=== PATIENT | male | born 1980 | race Hispanic/Latino ===

== ENCOUNTER 2017-04-10 11:00 | Emergency (ER) | payer SELFPAY ==
[2017-04-10] MEDS ORDERED: cloNIDine 0.1 MG TAB ONE (11:24)
[2017-04-10] MEDS ORDERED: Lorazepam 2 MG/ML VIAL ONE (11:24)
[2017-04-10 11:30] LABS: #Basophils 0.1 thou/uL (0.0-0.2); #Monocytes 0.9 thou/uL (0.11-0.59); #Neutrophils 5.3 thou/uL (1.40-6.50); %Eosinophils 0.3 % (0.0-10.0); %Lymphocytes 14.1 % (21.0-51.0); %Monocytes 12.7 % (0.0-10.0); %Neutrophils 71.9 % (42.0-75.0); Hemoglobin 13.8 g/dL (14.0-18.0); Mean Corpuscular HGB CONC 34.5 g/dL (32.0-36.0); Mean Corpuscular Hemoglobin 32.7 pg (27.0-31.0); Mean Corpuscular Volume 94.8 fl (80.0-94.0); Mean Platelet Volume 6.7 fL (7.4-10.4); Platelet Count 318 thou/uL (130-400); RBC Distribution Width 13.3 % (11.5-14.5); Red Blood Cell (RBC) Count 4.21 mill/uL (4.70-6.10); White Blood Cell (WBC) Count 7.4 thou/uL (4.8-10.8)
[2017-04-10] MEDS ORDERED: Ondansetron ODT 4 MG TAB ONE (11:37)
[2017-04-10 11:44] LABS: Anion Gap 18 mmol/L (10-20); BUN (Urea Nitrogen) 4 mg/dL (8.9-20.6); Calc. Creatinine Clearance 0 mL/min (70-130); Calcium 9.3 mg/dL (7.8-10.44); Carbon Dioxide 26 mmol/L (22-29); Chloride 97 mmol/L (98-107); Estimated GFR-MDRD Greater than 90; Glucose 88 mg/dL (70-105); Potassium 3.6 mmol/L (3.5-5.1); Sodium 137 mmol/L (136-145)
[2017-04-10 11:47] LABS: Acetaminophen Less than 6.0 mcg/mL (10.0-30.0); Alcohol 77 mg/dL (Less than 10); Salicylate Less than 8.0 mg/dL (15.0-30.0)
[2017-04-10] MEDS ORDERED: Thiamine HCl 200 MG/2 ML VIAL ONE (12:08)
== END 2017-04-10 12:30 | disposition home or self-care (01) ==
LOC: MADERS 11:00
DX: F10.239 Alcohol dependence with withdrawal, unspecified (principal); F17.210 Nicotine dependence, cigarettes, uncomplicated; F20.9 Schizophrenia, unspecified; I10 Essential (primary) hypertension
CPT/HCPCS: 80048; 80307; 85025; 96372; J2060; J3411; Q0162

== ENCOUNTER 2018-04-29 12:22 | Emergency (ER) | payer SELFPAY | END 2018-04-29 17:00 | disposition home or self-care (01) | LOC: MADERS 12:22 | DX: K52.9 Noninfective gastroenteritis and colitis, unspecified (principal); I10 Essential (primary) hypertension; F20.9 Schizophrenia, unspecified; F17.210 Nicotine dependence, cigarettes, uncomplicated | CPT/HCPCS: 87804; 99284 ==

== ENCOUNTER 2018-05-20 18:12 | Emergency (ER) | payer SELFPAY ==
[2018-05-20] MEDS ORDERED: Penicillin V Potassium 250 MG TAB ONE ×2 (19:04)
== END 2018-05-20 19:13 | disposition home or self-care (01) ==
LOC: MADERS 18:12
DX: K14.0 Glossitis (principal); I10 Essential (primary) hypertension; F20.9 Schizophrenia, unspecified; F17.210 Nicotine dependence, cigarettes, uncomplicated
CPT/HCPCS: 99282

== ENCOUNTER 2018-11-30 08:32 | Emergency (ER) | payer SELFPAY ==
[~2018-11-30 08:32] MED LIST: Sodium Chloride 0.9% 1,000 ML BAG ONE
[2018-11-30] MEDS ORDERED: Ondansetron PF 4 MG/2 ML Vial ONE (09:08)
[2018-11-30] MEDS ORDERED: Sodium Chloride 0.9% 1,000 ML ONE (09:08)
[2018-11-30 09:13] LABS: Hemoglobin 15.3 g/dL (14.0-18.0); Mean Corpuscular HGB CONC 33.5 g/dL (32.0-36.0); Mean Corpuscular Hemoglobin 31.6 pg (27.0-31.0); Mean Corpuscular Volume 94.5 fL (78.0-98.0); Mean Platelet Volume 7.7 fL (7.4-10.4); Platelet Count 265 thou/uL (130-400); RBC Distribution Width 13.1 % (11.5-14.5); Red Blood Cell (RBC) Count 4.83 mill/uL (4.70-6.10); White Blood Cell (WBC) Count 5.4 thou/uL (4.8-10.8)
--- NOTE | 2018-11-30 09:26 | RAD ---
XR Abdomen 2 View/1 View Cxr HISTORY: Abdominal pain nausea and vomiting. COMPARISON: None. FINDINGS: The bowel gas pattern is nonobstructive. No free air. No renal calculi are demonstrated. Th ere are arthritic changes of the spine. PA chest: Heart size and mediastinum are within normal limits. The lungs are clear of infiltrates. IMPRESSION: No acute findings.
[2018-11-30 09:31] LABS: Band 1 % (5-11); Lymphocytes 38 % (21-51); MDiff Complete? YES; Monocytes 16 % (0-10); Neutrophil 44 % (42-75)
[2018-11-30 09:32] LABS: Anisocytosis SLIGHT = 6-15 cells (100X) (0-5/hpf); Eosinophils 1 % (0-10); Platelet Morphology Comment Appears Adequate
[2018-11-30 09:33] LABS: ALT (SGPT) 106 U/L (8-55); AST (SGOT) 118 U/L (5-34); Albumin 4.9 g/dL (3.5-5.0); Alcohol 91 mg/dL (Less than 10); Alkaline Phosphatase 97 U/L (40-110); Anion Gap 22 mmol/L (10-20); BUN (Urea Nitrogen) 6 mg/dL (8.9-20.6); Bilirubin, Total 0.8 mg/dL (0.2-1.2); CK (CPK) 303 U/L (30-200); Calc. Creatinine Clearance 0 mL/min (70-130); Calcium 10.1 mg/dL (7.8-10.44); Carbon Dioxide 23 mmol/L (22-29); Chloride 99 mmol/L (98-107); Estimated GFR-MDRD Greater than 90; Globulin 3.5 g/dL (2.4-3.5); Glucose 119 mg/dL (70-105); Lipase 31 U/L (8-78); Potassium 3.4 mmol/L (3.5-5.1); Protein, Total 8.4 g/dL (6.0-8.3); Sodium 141 mmol/L (136-145)
[2018-11-30] MEDS ORDERED: Pantoprazole 40 MG VIAL ONE (09:44)
[2018-11-30 10:22] LABS: Bilirubin Negative (Negative); Blood, Urine Negative (Negative); Clarity Clear (Clear); Glucose, Urine (Dipstick) 100 mg/dL (Negative); Leukocyte Negative (Negative); Nitrite Negative (Negative); Protein, Urine (Dipstick) 100 mg/dL (Neg-Trace)
[2018-11-30 10:31] LABS: Bacteria/HPF Rare-Few HPF (None Seen); RBC/HPF 0-3 HPF (0-3); Squamous Epithelial 0-3 HPF (0-3); WBC/HPF 0-3 HPF (0-3)
[2018-11-30 10:32] LABS: Amphetamine Not Detected (NotDetected); Barbiturates Screen Not Detected (NotDetected); Benzodiazepine Screen Not Detected (NotDetected); Cocaine Metabolite Screen Not Detected (NotDetected); Medtox Control Line Valid? VALID (VALID); Methadone Not Detected (NotDetected); Methamphetamine Not Detected (NotDetected); Opiate Screen Not Detected (NotDetected); Oxycodone Screen Not Detected (NotDetected); Phencyclidine (PCP) Not Detected (NotDetected); THC/Cannabinoid Screen Not Detected (NotDetected); Tricyclic Screen Not Detected (NotDetected)
== END 2018-11-30 11:03 | disposition home or self-care (01) ==
LOC: MADERS 08:32
DX: K70.30 Alcoholic cirrhosis of liver without ascites (principal); E86.0 Dehydration; F10.129 Alcohol abuse with intoxication, unspecified; I10 Essential (primary) hypertension; F20.9 Schizophrenia, unspecified; F17.210 Nicotine dependence, cigarettes, uncomplicated
CPT/HCPCS: 74022; 80053; 80306; 80307; 81003; 81015; 82150; 82550; 83690; 85025; 96361; 96374; 96375; C9113; J2405; J7050

== ENCOUNTER 2020-07-11 04:58 | Emergency (ER) | payer OTHER, SELFPAY ==
[2020-07-11 05:53] LABS: Hemoglobin 12.1 g/dL (14.0-18.0); Mean Corpuscular HGB CONC 31.9 g/dL (32.0-36.0); Mean Corpuscular Hemoglobin 34.2 pg (27.0-31.0); Mean Corpuscular Volume 107.4 fL (78.0-98.0); Mean Platelet Volume 8.9 fL (7.4-10.4); Platelet Count 107 thou/uL (130-400); RBC Distribution Width 17.9 % (11.5-14.5); Red Blood Cell (RBC) Count 3.54 mill/uL (4.70-6.10); White Blood Cell (WBC) Count 7.9 thou/uL (4.8-10.8)
[2020-07-11] MEDS ORDERED: Lidocaine 1% w/Epinephrine 1:100K 20 ML VIAL ONE (05:53)
[2020-07-11 05:54] LABS: INR-International Normal Ratio 0.9; PTT 24.7 sec (22.9-36.1); Prothrombin Time 12.6 sec (12.0-14.7)
[2020-07-11 05:58] LABS: #Lymphocytes 1.3 thou/uL (1.20-3.40); #Monocytes 0.7 thou/uL (0.11-0.59); #Neutrophils 5.9 thou/uL (1.40-6.50); %Basophils 0.6 % (0.0-1.0); %Eosinophils 0.1 % (0.0-10.0); %Lymphocytes 16.6 % (21.0-51.0); %Monocytes 8.3 % (0.0-10.0); %Neutrophils 74.5 % (42.0-75.0); Platelet Morphology Comment Appears Adequate; RBC Morphology Normal
[2020-07-11 06:04] LABS: ALT (SGPT) 213 U/L (8-55); AST (SGOT) 478 U/L (5-34); Albumin 4.2 g/dL (3.5-5.0); Alkaline Phosphatase 129 U/L (40-110); Anion Gap 27 mmol/L (10-20); BUN (Urea Nitrogen) 6 mg/dL (8.9-20.6); Bilirubin, Total 2.5 mg/dL (0.2-1.2); Calc. Creatinine Clearance 0 mL/min (70-130); Calcium 9.2 mg/dL (7.8-10.44); Carbon Dioxide 21 mmol/L (22-29); Chloride 95 mmol/L (98-107); Globulin 3.6 g/dL (2.4-3.5); Glucose 165 mg/dL (70-105); Potassium 4.2 mmol/L (3.5-5.1); Protein, Total 7.8 g/dL (6.0-8.3); Sodium 139 mmol/L (136-145)
[2020-07-11] MEDS ORDERED: Sodium Chloride 0.9% 1,000 ML ONE (06:16)
[2020-07-11] MEDS ORDERED: Sodium Chloride 0.9% 1,000 ML BAG ONE (07:01)
[2020-07-11] MEDS ORDERED: Sulfameth/Trimethoprim DS 800-160mg TAB ONE (07:17)
[2020-07-11] MEDS ORDERED: Lorazepam 2 MG/ML VIAL ONE (07:32)
[2020-07-11] MEDS ORDERED: Boostrix 0.5 ML (Tdap) VIAL ONE (07:56)
== END 2020-07-11 08:30 | disposition short-term general hospital (02) ==
LOC: MADERS 04:58
DX: S06.0X1A Concussion with loss of consciousness of 30 minutes or less, initial encounter (principal); S01.01XA Laceration without foreign body of scalp, initial encounter; R58 Hemorrhage, not elsewhere classified; I10 Essential (primary) hypertension; F10.10 Alcohol abuse, uncomplicated; R56.1 Post traumatic seizures; F17.210 Nicotine dependence, cigarettes, uncomplicated; W19.XXXA Unspecified fall, initial encounter; Y92.149 Unspecified place in prison as the place of occurrence of the external cause
CPT/HCPCS: 12002; 36415; 70450; 72125; 80053; 80307; 85025; 85610; 85730; 90471; 90715; 94760; 96374; J2060; J7050